=== PATIENT | female | born 1945 | race Caucasian/White ===

== ENCOUNTER 2017-09-28 12:59 | Emergency (ER) | payer MEDICARE ==
[~2017-09-28] VITALS: Ht 162.6 cm; Wt 81.6 kg
[2017-09-28] MEDS ORDERED: SODIUM CHLORIDE 0.9% 1000ML 1,000 ML IV SCH ×2 (13:30→14:45)
[2017-09-28 13:41] LABS: BASOPHILS % 0.5 % (0.0-1.0); EOSINOPHILS # (AUTO) 0.2 (0.0-0.4); EOSINOPHILS % 3.5 % (0.0-6.0); HEMATOCRIT 27.9 % (34.2-44.1); HEMOGLOBIN 9.3 g/dL (12.0-16.0); LYMPHOCYTES # (AUTO) 2.1 (1.0-3.2); MEAN CORPUSCULAR HEMOGLOBIN 28.4 pg (28-32); MEAN CORPUSCULAR HGB CONC 33.3 g/dL (31-35); MEAN CORPUSCULAR VOLUME 85.1 fL (81-99); MONOCYTES # (AUTO) 0.6 (0.2-0.8); MONOCYTES % 9.7 % (4.4-11.3); NEUTROPHILS # (AUTO) 3.3 (2.1-6.9); NEUTROPHILS % 52.2 % (38.7-80.0); PLATELET COUNT 285 x10e3/uL (140-360); RED BLOOD COUNT 3.28 x10e6/uL (3.6-5.1); RED CELL DISTRIBUTION WIDTH 15.1 % (11.7-14.4)
[2017-09-28 13:52] LABS: INR 0.89; PARTIAL THROMBOPLASTIN TIME 23.7 seconds (23.8-35.5); PROTHROMBIN TIME 12.5 seconds (11.9-14.5)
--- NOTE | 2017-09-28 13:53 | Diagnostic Imaging Report ---
PROCEDURE: A single AP view of the chest. COMPARISON: None. INDICATIONS: ALTERED MENTAL STATUS FINDINGS: Lines/tubes: None. Lungs: Limited by body habitus. The lungs are well inflated and clear. There is no evidence of pneumonia or pulmonary edema. Pleura: There is no pleural effusion or pneumothorax. Heart and mediastinum: The heart and the mediastinum are unremarkable. Bones: No acute bony abnormality. IMPRESSION: 1. No acute cardiopulmonary disease. Dictated by: Bull Mims M.D. on 09/28/2017 at 14:01 Electronically approved by: Bull Mims M.D. on 09/28/2017 at 14:01
[2017-09-28 14:04] LABS: ALBUMIN 3.9 g/dL (3.5-5.0); ALBUMIN/GLOBULIN RATIO 1.1 (0.8-2.0); ANION GAP 11.4 mmol/L (8-16); CALCIUM 9.1 mg/dL (8.4-10.2); CREATININE, SERUM 2.44 mg/dL (0.57-1.11); POTASSIUM 4.4 mmol/L (3.5-5.1)
[2017-09-28 14:12] LABS: CREATINE KINASE MB 5.6 ng/mL (0.00-5.00); TROPONIN I 0.01 ng/mL (0-0.300)
[2017-09-28 14:41] LABS: BILIRUBIN,URINE NEGATIVE (NEGATIVE); CLARITY,URINE SL CLOUDY (CLEAR); COLOR,URINE YELLOW (YELLOW); KETONES,URINE NEGATIVE (NEGATIVE); LEUKOCYTE ESTERASE ,URINE 2+ (NEGATIVE); NITRITE,URINE NEGATIVE (NEGATIVE); PROTEIN,URINE DIPSTICK NEGATIVE (NEGATIVE); URINE UROBILINOGEN 0.2 mg/dL (0.2 - 1)
--- NOTE | 2017-09-28 14:44 | Diagnostic Imaging Report ---
History:Forgetfulness Comparison studies:None Technique: Axial images were obtained from the skull base to the vertex. Coronal and sagittal images reconstructed from the axial data. Intravenous contrast: None Findings: Scalp/skull: No abnormalities. Extra-axial spaces: No masses. No fluid collections. Brain sulci: Mildly prominent. Ventricles: Mild compensatory dilatation. No hydrocephalus. Parenchyma: Scattered small hypodensities in the supratentorial white matter are small vessel ischemic changes. No masses, hemorrhage, acute or chronic cortical vascular insults. Sellar/suprasellar region: No abnormalities. Craniocervical junction: Patent foramen magnum. No Chiari one malformation. Incidental findings: Atherosclerotic calcifications in the carotid siphons . Impression: No acute abnormalities. Chronic findings: 1. Mild generalized volume loss. 2. Mild supratentorial white matter small vessel ischemic changes. Signed by: DR Joe Meza M.D. on 09/28/2017 2:41 PM
[2017-09-28] MEDS ORDERED: SODIUM CHLORIDE 0.9% 1000ML 1,000 ML IV ONE (15:00)
[2017-09-28 15:07] LABS: BACTERIA,URINE FEW /HPF; EPITHELIAL CELLS,URINE FEW /LPF; TRANSITIONAL EPI CELLS,URINE FEW; WBC,URINE (MAN) 0-5 /HPF (0-5)
[2017-09-28 16:21] VITALS: BP 145/61
== END 2017-09-28 16:45 | disposition home or self-care (01) ==
LOC: ER 12:59
DX: R41.0 Disorientation, unspecified (principal); E86.0 Dehydration; N39.0 Urinary tract infection, site not specified
CPT/HCPCS: 36415; 70450; 71010; 80053; 81001; 82550; 82553; 84484; 85025; 85610; 85730; 87086; 93005; 99284; J7030

== ENCOUNTER 2018-01-26 19:45 | Observation (INO) | payer MEDICARE ==
[~2018-01-26] VITALS: Ht 162.6 cm; Wt 89.9 kg
--- OUTSIDE RECORDS SUMMARY | 2018-01-26 19:47 | XMS REPORT ---
Author Author [facility] Address Unknown Phone Unavailable Care Team Providers Care Paratransit Operator Name Role Phone DIETER SAEED Unavailable Unavailable Problems This patient has no known problems. Allergies, Adverse Reactions, Alerts This patient has no known allergies or adverse reactions. Medications This patient has no known medications. Results Test Description Test Time Test Comments Text Results Atomic Results Result Comments CHEST SINGLE (PORTABLE) [place] [address] Patient Name: WAYNE OLSON MR #: [id number] : 1945 Age/Sex: 71/F Req #: [id number] Adm Physician: Ordered by: DIETER SAEED MD Report #: [id number] Location: ER Room/Bed: Procedure: [id number] DX/CHEST SINGLE (PORTABLE) Exam Date: 09/28/17 Exam Time: 1320 REPORT STATUS: Signed PROCEDURE: A single AP view of the chest. COMPARISON: None. INDICATIONS: ALTERED MENTAL STATUS FINDINGS: Lines/tubes: None. Lungs: Limited by body habitus. The lungs are well inflated and clear. There is no evidence of pneumonia or pulmonary edema. Pleura: There is no pleural effusion or pneumothorax. Heart and mediastinum: The heart and the mediastinum are unremarkable. Bones: No acute bony abnormality. IMPRESSION: 1. No acute cardiopulmonary disease. Dictated by: Bull Velazquez M.D. on 09/28/2017 at 14:01 Electronically approved by: Bull Velazquez M.D. on 09/28/2017 at 14:01 Dictated By: BULL VELAZQUEZ MD 00 Transcribed By: SUAD on 09/28/171400 COPY TO: DIETER SAEED MD CT BRAIN WO [place] [address] Patient Name: WAYNE OLSON MR #: [id number] : 1945 Age/Sex: 71/F Req #: [id number] Adm Physician: Ordered by: DIETER SAEED MD Report #: [id number] Location: Room/Bed: Procedure: [id number] CT/CT BRAIN WO Exam Date: 09/28/17 Exam Time: 1320 REPORT STATUS: Signed History:Forgetfulness Comparison studies:None Technique: Axial images were obtained from the skull base to the vertex. Coronal and sagittal images reconstructed from the axial data. Intravenous contrast: None Findings: Scalp/skull: No abnormalities. Extra- axial spaces: No masses. No fluid collections. Brain sulci: Mildly prominent. Ventricles: Mild compensatory dilatation. No hydrocephalus. Parenchyma: Scattered small hypodensities in the supratentorial white matter are small vessel ischemic changes. No masses, hemorrhage, acute or chronic cortical vascular insults. Sellar/suprasellar region: No abnormalities. Craniocervical junction: Patent foramen magnum. No Chiari one malformation. Incidental findings: Atherosclerotic calcifications in the carotid siphons . Impression: No acute abnormalities. Chronic findings: 1. Mild generalized volume loss. 2. Mild supratentorial white matter small vessel ischemic changes. Signed by: DR Joe Meza M.D. on 09/28/2017 2:41 PM Dictated By: JOE CARRERA MD 1441 Transcribed By: OLIVIA on 1441 COPY TO: DIETER SAEED MD
[2018-01-26 20:27] LABS: BASOPHILS % 0.2 % (0.0-1.0); EOSINOPHILS # (AUTO) 0.2 (0.0-0.4); EOSINOPHILS % 2.3 % (0.0-6.0); HEMATOCRIT 28.4 % (34.2-44.1); HEMOGLOBIN 9.6 g/dL (12.0-16.0); LYMPHOCYTES # (AUTO) 2.2 (1.0-3.2); LYMPHOCYTES % 25.7 % (18.0-39.1); MEAN CORPUSCULAR HEMOGLOBIN 28.3 pg (28-32); MEAN CORPUSCULAR HGB CONC 33.8 g/dL (31-35); MEAN CORPUSCULAR VOLUME 83.8 fL (81-99); MONOCYTES # (AUTO) 0.7 (0.2-0.8); MONOCYTES % 8.1 % (4.4-11.3); NEUTROPHILS # (AUTO) 5.4 (2.1-6.9); NEUTROPHILS % 62.9 % (38.7-80.0); PLATELET COUNT 242 x10e3/uL (140-360); RED BLOOD COUNT 3.39 x10e6/uL (3.6-5.1); RED CELL DISTRIBUTION WIDTH 13.2 % (11.7-14.4)
--- NOTE | 2018-01-26 20:35 | Diagnostic Imaging Report ---
Portable chest x-ray INDICATION: Confusion COMPARISON: Chest x-ray 09/28/2017 FINDINGS: Frontal view of the chest obtained at 2016 hours. The cardiac silhouette is normal. The pulmonary vascular markings are normal. The lungs demonstrate no mass or infiltrate. There is stable eventration of the right diaphragm. The costophrenic angles are sharp. There is no pneumothorax. The osseous structures are intact. Severe degenerative changes of the left shoulder are stable. IMPRESSION: Stable chest. No active disease. Signed by: Dr. Nick Babcock MD on 01/26/2018 8:32 PM
[2018-01-26 20:47] LABS: ALBUMIN 3.4 g/dL (3.5-5.0); ALBUMIN/GLOBULIN RATIO 1.1 (0.8-2.0); ANION GAP 12.5 mmol/L (8-16); CREATININE, SERUM 1.37 mg/dL (0.57-1.11); POTASSIUM 4.5 mmol/L (3.5-5.1)
[2018-01-26 20:54] LABS: CREATINE KINASE MB 9.1 ng/mL (0-5.0)
--- NOTE | 2018-01-26 21:04 | Diagnostic Imaging Report ---
EXAMINATION: Head CT HISTORY: Evaluate for acute stroke, confusion COMPARISON: Head CT on 09/28/2017. TECHNIQUE: Multidetector axial images were obtained without contrast from the foramen magnum to the vertex . The images were reconstructed using brain and bone algorithms. Thin section brain images were reformatted into coronal and sagittal planes. Intravenous contrast: None. Motion/streaking artifact limits the evaluation of the skull base and posterior cranial fossa. FINDINGS: Parenchyma: 1. Stable mild chronic microvascular ischemic changes. 2. No mass or hemorrhage. No CT evidence of acute territorial vascular insult. Extra-axial spaces:No abnormal density. No extra-axial fluid collections Brain volume: Normal for age. Ventricles: No hydrocephalus or displacement. Arteries: No density suggestive of thrombus. Dural sinuses: No abnormal density. Extra-axial spaces: No abnormal density. Foramen magnum: No mass, Chiari malformation, or basilar invagination. Sella: Mildly enlarged, partially empty, likely CSF filled. Paranasal/mastoid sinuses: Imaged portions unremarkable. Skull/Scalp: No lytic or blastic lesions. No fractures. Nonspecific lucency within multiple segment of the right temporal bone without cortical disruption or radiographic reaction, which may represent a hemangioma.. IMPRESSION: 1. No intracranial hemorrhage or CT evidence of acute cortical infarct. 2. Stable mild chronic microvascular ischemic changes. Signed by: Dr. Pamela Gomez M.D. on 01/26/2018 9:00 PM
[2018-01-26 22:50] LABS: CLARITY,URINE CLEAR (CLEAR); COLOR,URINE YELLOW (YELLOW); KETONES,URINE NEGATIVE (NEGATIVE); LEUKOCYTE ESTERASE ,URINE TRACE (NEGATIVE); NITRITE,URINE NEGATIVE (NEGATIVE); PROTEIN,URINE DIPSTICK NEGATIVE (NEGATIVE)
[2018-01-26 22:51] LABS: BILIRUBIN,URINE NEGATIVE (NEGATIVE); URINE UROBILINOGEN 0.2 mg/dL (0.2 - 1)
[2018-01-26 22:58] LABS: BACTERIA,URINE RARE /HPF; EPITHELIAL CELLS,URINE FEW /LPF; MUCUS,URINE MANY (RARE); WBC,URINE (MAN) 21-50 /HPF (0-5)
[2018-01-26] MEDS ORDERED: ONDANSETRON HCL 4 MG ORAL DISINTEGRATING TAB PO PRN (23:00)
[2018-01-26] MEDS ORDERED: CEFTRIAXONE SOD 1 GM VIAL IV SCH (23:00)
[2018-01-26] MEDS ORDERED: CEFTRIAXONE SOD 1 GM VIAL ONE (23:16)
[2018-01-26] MEDS: SODIUM CHLORIDE 0.9% 1000ML 1,000 ML IV SCH (23:24)
[2018-01-27] VITALS: BP 149/66
[2018-01-27] MEDS ORDERED: LEVOTHYROXINE150 MCG PO (00:01)
[2018-01-27] MEDS ORDERED: TRAZODONE HCL100 MG PO (00:01)
[2018-01-27] MEDS ORDERED: ALPRAZOLAM0.5 MG PO (00:01)
[2018-01-27] MEDS ORDERED: RANITIDINE HCL300 M1 PO (00:01)
[2018-01-27] MEDS ORDERED: CITALOPRAM HBR40 MG PO (00:01)
[2018-01-27] MEDS ORDERED: HYDROCODON-ACE1 EAC9 PO (00:01)
[2018-01-27 00:40] VITALS: BP 163/69
[2018-01-27 04:00] VITALS: BP 162/72
[2018-01-27 04:35] LABS: ALBUMIN/GLOBULIN RATIO 1.1 (0.8-2.0); ANION GAP 11.5 mmol/L (8-16); CALCIUM 8.7 mg/dL (8.4-10.2); CREATININE, SERUM 1.4 mg/dL (0.57-1.11); POTASSIUM 4.5 mmol/L (3.5-5.1)
[2018-01-27 06:55] LABS: BASOPHILS % 0.2 % (0.0-1.0); EOSINOPHILS # (AUTO) 0.2 (0.0-0.4); EOSINOPHILS % 2.3 % (0.0-6.0); HEMATOCRIT 26.2 % (34.2-44.1); HEMOGLOBIN 8.9 g/dL (12.0-16.0); LYMPHOCYTES # (AUTO) 2.4 (1.0-3.2); LYMPHOCYTES % 28.4 % (18.0-39.1); MEAN CORPUSCULAR HEMOGLOBIN 28.3 pg (28-32); MEAN CORPUSCULAR VOLUME 83.4 fL (81-99); MONOCYTES # (AUTO) 0.8 (0.2-0.8); MONOCYTES % 9.5 % (4.4-11.3); NEUTROPHILS % 58.9 % (38.7-80.0); PLATELET COUNT 210 x10e3/uL (140-360); RED BLOOD COUNT 3.14 x10e6/uL (3.6-5.1); RED CELL DISTRIBUTION WIDTH 13.2 % (11.7-14.4)
[2018-01-27] MEDS ORDERED: HYDROCODONE/APAP 10MG-325MG TAB PO PRN ×2 (07:45)
[2018-01-27 07:58] VITALS: BP 155/61
[2018-01-27] MEDS ORDERED: LOPERAMIDE HCL 2 MG CAP PO PRN (08:15)
[2018-01-27] MEDS ORDERED: LOPERAMIDE HCL 2 MG CAP PO ONE (08:15)
[2018-01-27] MEDS: SODIUM CHLORIDE 0.9% 1000ML 1,000 ML IV SCH (08:30)
[2018-01-27] MEDS ORDERED: CITALOPRAM HYDROBROMIDE 20 MG TAB PO SCH (09:00)
[2018-01-27] MEDS ORDERED: NON-FORMULARY MEDICATION (Citalopram Hydrobromide (Citalopram Hbr) 40 MG) PO SCH (09:00)
[2018-01-27] MEDS ORDERED: ALPRAZOLAM 0.5 MG TAB PO SCH (09:00)
[2018-01-27 11:39] VITALS: BP 173/64
[2018-01-27 11:46] LABS: CREATINE KINASE MB 7.9 ng/mL (0-5.0)
[2018-01-27] MEDS ORDERED: MACRODANTIN100 MG PO (14:50)
[2018-01-27] MEDS ORDERED: NON-FORMULARY MEDICATION (Trazodone Hcl 200 MG) PO SCH (21:00)
[2018-01-27] MEDS ORDERED: TRAZODONE HCL 50 MG TAB PO SCH (21:00)
[2018-01-27] MEDS ORDERED: FAMOTIDINE 20 MG TAB PO SCH (21:00)
[2018-01-27] MEDS ORDERED: NON-FORMULARY MEDICATION (Ranitidine Hcl 300 MG) PO SCH (21:00)
[2018-01-28] MEDS ORDERED: NON-FORMULARY MEDICATION (Levothyroxine Sodium 150 MCG) PO SCH (06:00)
[2018-01-28] MEDS ORDERED: LEVOTHYROXINE SODIUM 75 MCG TAB PO SCH (06:00)
== END 2018-01-27 15:10 | disposition home or self-care (01) ==
LOC: ER 19:45 → IMCU 23:39
PROVIDERS: ADMIT Internal Medicine; ATTEND Internal Medicine
DX: N30.00 Acute cystitis without hematuria (principal); E03.9 Hypothyroidism, unspecified; F41.9 Anxiety disorder, unspecified; E86.0 Dehydration; E87.1 Hypo-osmolality and hyponatremia; I12.9 Hypertensive chronic kidney disease with stage 1 through stage 4 chronic kidney disease, or unspecified chronic kidney disease; N18.3 Chronic kidney disease, stage 3 (moderate); D64.9 Anemia, unspecified; R41.0 Disorientation, unspecified
CPT/HCPCS: 36415 ×2; 51700; 70450; 71045; 80053 ×2; 81001; 82550 ×2; 82553 ×2; 84484 ×2; 85025 ×2; 87086; 93880; 99284; G0378 ×2; J0696; J7030 ×2

== ENCOUNTER 2018-10-24 22:07 | Inpatient (IN) | payer MEDICARE ==
[~2018-10-24] VITALS: Ht 160 cm; Wt 76.8 kg
[~2018-10-24 22:07] MED LIST: ALPRAZOLAM0.5 MG PO; CITALOPRAM HBR40 MG PO; HYDROCODON-ACE1 EAC9 PO; LEVOTHYROXINE150 MCG PO; MACRODANTIN100 MG PO; RANITIDINE HCL300 M1 PO; TRAZODONE HCL100 MG PO
--- OUTSIDE RECORDS SUMMARY | 2018-10-24 22:10 | XMS REPORT | Continuity of Care Document ---
Author Author [facility] Interface Address Unknown Phone Unavailable Problems Problem Status Onset Date Classification Date Reported Comments Source Final: Stiffness of right ankle, not elsewhere classified 05/16/2016 [facility] [place] Final: Difficulty in walking, not elsewhere classified 05/16/2016 [facility] [place] Final: Pain in right ankle and joints of right foot 05/16/2016 [facility] [place] Confusion Active Problem 01/27/2018 [facility] UTI Active Problem 01/27/2018 [facility] LT KNEE Active [facility] [place] LEFT KNEE Active [facility] [place] SPRAIN OF UNSPECIFIED LIGAMENT OF RIGHT Active [facility] [place] PAIN IN LEFT KNEE Active [facility] [place] MUSCLE WEAKNESS (GENERALIZED) Active [facility] [place] STIFFNESS OF RIGHT ANKLE, NOT ELSEWHERE Active [facility] [place] DIFFICULTY IN WALKING, NOT ELSEWHERE CLA Active [facility] [place] PAIN IN RIGHT ANKLE AND JOINTS OF RIGHT Active [facility] [place] Medications Medication Details Route Status Patient Instructions Ordering Provider Order Date Source Alprazolam 0.5 Mg Tablet Three Times A Day Active [facility] Citalopram Hydrobromide (Citalopram Hbr) 40 Mg Tablet Daily Active [facility] Hydrocodone Bit/Acetaminophen (Hydrocodon-Acetaminophn 10-325) 1 Each Tablet Every 8 Hours as needed for Pain Active [facility] Levothyroxine Sodium 150 Mcg Tablet Daily Active [facility] Nitrofurantoin Macrocrystal (Macrodantin) 100 Mg Capsule Twice A Day Active [facility] Ranitidine Hcl 300 Mg Capsule Bedtime Active [facility] Trazodone Hcl 100 Mg Tablet Bedtime Active [facility] Allergies, Adverse Reactions, Alerts Substance Category Reaction Severity Reaction type Status Date Reported Comments Source Immunizations Immunization Date Given Site Status Last Updated Comments Source Results Order Name Results Value Reference Range Date Interpretation Comments Source Brain wo contrast MRI Brain wo contrast MRI Patient Name: WAYNE OLSON : 1945. Age: 72 years. Gender: Female. MR: [id number]. Location: [facility]. Provider: Chelly Colvin MD. EXAM: Brain wo contrast MRI. PROVIDED CLINICAL HISTORY: Memory loss. Unsteady gait and falling for one month. - G30.1 Alzheimer's disease with late onset TECHNIQUE: Multi-sequence, multi-planar MR of the brain without gadolinium contrast. COMPARISON: No relevant prior exams available at the time of interpretation. FINDINGS: BRAIN: -- Moderate confluent abnormally increased supratentorial periventricular white matter T2 and FLAIR signal. Additional mostly subcentimeter hyperintense foci scattered throughout the subcortical and periventricular deep white matter bilaterally. Pattern is non-specific but most commonly due to chronic small vessel ischemic disease. -- Pituitary gland is flattened along the floor of the CSF-filled "empty" sella, a typically clinically insignificant non-specific finding that can be seen with idiopathic intracranial hypertension in the appropriate clinical setting. No significant optic nerve tortuosity, flattening of the posterior globe contours, intraocular protrusion of the optic nerve heads, or other secondary signs of intracranial hypertension. -- No areas of abnormally-restricted diffusion in a pattern suggestive of acute or early subacute ischemia. No intracranial hemorrhage. No other fluid collection. No intracranial mass. No cerebellar tonsillar ectopia. Mildly prominent but age-consistent global parenchymal volume loss. VENTRICLES / CISTERNS / SHIFT: No hydrocephalus. No significant effacement of the basal cisterns or foramen magnum. No significant midline shift. VESSELS: No loss of flow voids within the major intracranial vessels or dural sinuses. Vessel and dural sinus patency are not adequately assessed without dedicated angiography or venography. BONES / SCALP: No acute fracture. No significant systemic marrow signal abnormality. No aggressive bony lesions. No significant extracranial soft tissue abnormality. IMAGED SINUSES / MASTOIDS / MISC: Aerated sphenoid sinus secretions, commonly acute or subacute sinusitis. No significant sinus mucosal thickening. No significant mastoid signal abnormality. IMAGED UPPER CERVICAL SPINE: Moderate degenerative changes along the imaged upper cervical spine, best evaluated with dedicated MR. IMPRESSION: 1. No acute intracranial abnormality. 2. Chronic microangiopathic ischemic gliosis. 3. Acute or subacute sinusitis. 4. Cervical spondylosis. 5. Please review additional findings / discussion above. SL: [id number] 07/21/2018 - - Read by: Maulik Quintana MD Dictated Date/time: 07/21/18 13:14 Electronically Signed by: Maulik Quintana MD 07/21/18 13:26 FINAL REPORT [facility] Serum or plasma creatine kinase MB measurement (mass/volume) Serum or plasma creatine kinase MB measurement (mass/volume) 7.90 0 - 5.0 01/27/2018 [facility] Serum or plasma creatine kinase measurement (enzymatic activity/volume) Serum or plasma creatine kinase measurement (enzymatic activity/volume) 237 29 - 168 01/27/2018 [facility] Troponin I measurement by highly sensitive enzyme immunoassay Troponin I measurement by highly sensitive enzyme immunoassay 0.003 0 - 0.300 01/27/2018 [facility] Automated blood basophil count (count/volume) Automated blood basophil count (count/volume) 0.0 0.0 - 0.1 01/27/2018 [facility] Automated blood basophil count as percentage of total leukocytes Automated blood basophil count as percentage of total leukocytes 0.2 0.0 - 1.0 01/27/2018 [facility] Automated blood eosinophil count Automated blood eosinophil count 0.2 0.0 - 0.4 01/27/2018 [facility] Automated blood eosinophil count as percentage of total leukocytes Automated blood eosinophil count as percentage of total leukocytes 2.3 0.0 - 6.0 01/27/2018 [facility] Automated blood hematocrit (volume fraction) Automated blood hematocrit (volume fraction) 26.2 34.2 - 44.1 01/27/2018 [facility] Automated blood lymphocyte count as percentage ot total leukocytes Automated blood lymphocyte count as percentage ot total leukocytes 28.4 18.0 - 39.1 01/27/2018 [facility] Automated blood monocyte count as percentage of total leukocytes Automated blood monocyte count as percentage of total leukocytes 9.5 4.4 - 11.3 01/27/2018 [facility] Automated blood neutrophil count Automated blood neutrophil count 5.0 2.1 - 6.9 01/27/2018 [facility] Automated blood platelet count (count/volume) Automated blood platelet count (count/volume) 210 140 - 360 01/27/2018 [facility] Automated blood segmented neutrophil count as percentage of total leukocytes Automated blood segmented neutrophil count as percentage of total leukocytes 58.9 38.7 - 80.0 01/27/2018 [facility] Automated erythrocyte mean corpuscular hemoglobin (mass per erythrocyte) Automated erythrocyte mean corpuscular hemoglobin (mass per erythrocyte) 28.3 28 - 32 01/27/2018 [facility] Automated erythrocyte mean corpuscular hemoglobin concentration measurement (mass/volume) Automated erythrocyte mean corpuscular hemoglobin concentration measurement (mass/volume) 34.0 31 - 35 01/27/2018 [facility] Automated erythrocyte mean corpuscular volume Automated erythrocyte mean corpuscular volume 83.4 81 - 99 01/27/2018 [facility] Blood erythrocytes automated count (number/volume) Blood erythrocytes automated count (number/volume) 3.14 3.6 - 5.1 01/27/2018 [facility] Blood hemoglobin measurement (moles/volume) Blood hemoglobin measurement (moles/volume) 8.9 12.0 - 16.0 01/27/2018 [facility] Blood leukocytes automated count (number/volume) Blood leukocytes automated count (number/volume) 8.43 4.8 - 10.8 01/27/2018 [facility] Blood lymphocytes count (number/volume) Blood lymphocytes count (number/volume) 2.4 1.0 - 3.2 01/27/2018 [facility] Blood monocytes automated count (number/volume) Blood monocytes automated count (number/volume) 0.8 0.2 - 0.8 01/27/2018 [facility] Red Cell Distribution Width 13.2 11.7 - 14.4 01/27/2018 [facility] IM GRANULOCYTES % 0.7 0.0 - 1.0 01/27/2018 [facility] Absolute Immature Granulocyte (auto 0.06 0 - 0.1 01/27/2018 [facility] Estimated glomerular filtration rate (GFR) determination Estimated glomerular filtration rate (GFR) determination 37 60 01/27/2018 [facility] Glucose measurement Glucose measurement 104 74 - 118 01/27/2018 [facility] Plasma globulin measurement (mass/volume) Plasma globulin measurement (mass/volume) 2.7 2.3 - 3.5 01/27/2018 [facility] Serum or plasma alanine aminotransferase measurement (enzymatic activity/volume) Serum or plasma alanine aminotransferase measurement (enzymatic activity/volume) 13 0 - 55 01/27/2018 [facility] Serum or plasma albumin measurement (mass/volume) Serum or plasma albumin measurement (mass/volume) 3.0 3.5 - 5.0 01/27/2018 [facility] Serum or plasma albumin/globulin mass ratio Serum or plasma albumin/globulin mass ratio 1.1 0.8 - 2.0 01/27/2018 [facility] Serum or plasma alkaline phosphatase measurement (enzymatic activity/volume) Serum or plasma alkaline phosphatase measurement (enzymatic activity/volume) 44 40 - 150 01/27/2018 [facility] Serum or plasma anion gap Serum or plasma anion gap 11.5 8 - 16 01/27/2018 [facility] Serum or plasma calcium measurement (mass/volume) Serum or plasma calcium measurement (mass/volume) 8.7 8.4 - 10.2 01/27/2018 [facility] Serum or plasma carbon dioxide, total measurement (moles/volume) Serum or plasma carbon dioxide, total measurement (moles/volume) 23 22 - 29 01/27/2018 [facility] Serum or plasma chloride measurement (moles/volume) Serum or plasma chloride measurement (moles/volume) 102 98 - 107 01/27/2018 [facility] Serum or plasma creatinine measurement (mass/volume) Serum or plasma creatinine measurement (mass/volume) 1.40 0.57 - 1.11 01/27/2018 [facility] Serum or plasma potassium measurement (moles/volume) Serum or plasma potassium measurement (moles/volume) 4.5 3.5 - 5.1 01/27/2018 [facility] Serum or plasma protein measurement (mass/volume) Serum or plasma protein measurement (mass/volume) 5.7 6.5 - 8.1 01/27/2018 [facility] Serum or plasma sodium measurement (moles/volume) Serum or plasma sodium measurement (moles/volume) 132 136 - 145 01/27/2018 [facility] Serum or plasma total bilirubin measurement (mass/volume) Serum or plasma total bilirubin measurement (mass/volume) 0.5 0.2 - 1.2 01/27/2018 [facility] Serum or plasma urea nitrogen measurement (mass/volume) Serum or plasma urea nitrogen measurement (mass/volume) 26 7 - 26 01/27/2018 [facility] Serum or plasma urea nitrogen/creatinine mass ratio Serum or plasma urea nitrogen/creatinine mass ratio 19 6 - 25 01/27/2018 [facility] Aspartate Amino Transf (AST/SGOT) 18 5 - 34 01/27/2018 [facility] Automated urine sediment leukocyte count by microscopy (number/high power field) Automated urine sediment leukocyte count by microscopy (number/high power field) null 0 - 5 01/26/2018 [facility] Bacteria detection in urine sediment by light microscopy Bacteria detection in urine sediment by light microscopy RARE NONE 01/26/2018 [facility] Epithelial cells detection in urine sediment by light microscopy Epithelial cells detection in urine sediment by light microscopy FEW NONE 01/26/2018 [facility] Erythrocytes detection in urine sediment by light microscopy Erythrocytes detection in urine sediment by light microscopy null 0 - 5 01/26/2018 [facility] Mucus detection in urine sediment by light microscopy Mucus detection in urine sediment by light microscopy MANY RARE 01/26/2018 [facility] Specific gravity of Urine by Test strip Specific gravity of Urine by Test strip 1.020 1.010 - 1.025 01/26/2018 [facility] Urine clarity Urine clarity CLEAR CLEAR 01/26/2018 [facility] Urine color determination Urine color determination YELLOW YELLOW 01/26/2018 [facility] Urine erythrocytes detection Urine erythrocytes detection NEGATIVE NEGATIVE 01/26/2018 [facility] Urine glucose detection Urine glucose detection NEGATIVE NEGATIVE 01/26/2018 [facility] Urine ketones detection by automated test strip Urine ketones detection by automated test strip NEGATIVE NEGATIVE 01/26/2018 [facility] Urine leukocyte esterase detection by dipstick Urine leukocyte esterase detection by dipstick TRACE NEGATIVE 01/26/2018 [facility] Urine nitrite detection Urine nitrite detection NEGATIVE NEGATIVE 01/26/2018 [facility] Urine pH measurement by automated test strip Urine pH measurement by automated test strip 6 5 - 7 01/26/2018 [facility] Urine protein measurement by test strip (mass/volume) Urine protein measurement by test strip (mass/volume) NEGATIVE NEGATIVE 01/26/2018 [facility] Urine total bilirubin measurement (mass/volume) Urine total bilirubin measurement (mass/volume) NEGATIVE NEGATIVE 01/26/2018 [facility] Urine urobilinogen measurement by test strip (mass/volume) Urine urobilinogen measurement by test strip (mass/volume) 0.2 0.2 - 1 01/26/2018 [facility] Activated partial thromboplastin time (aPTT) in platelet poor plasma bycoagulation assay Activated partial thromboplastin time (aPTT) in platelet poor plasma bycoagulation assay 23.7 23.8 - 35.5 09/28/2017 [facility] INR in Platelet poor plasma by Coagulation assay INR in Platelet poor plasma by Coagulation assay 0.89 09/28/2017 [facility] Prothrombin time (PT) in platelet poor plasma by coagulation assay Prothrombin time (PT) in platelet poor plasma by coagulation assay 12.5 11.9 - 14.5 09/28/2017 [facility] Transitional cells detection in urine sediment by light microscopy Transitional cells detection in urine sediment by light microscopy FEW NONE 09/28/2017 [facility] Bacterial urine culture Bacterial urine culture Urine Culture [facility] Vital Signs Vital Sign Value Date Comments Source Encounters Location Location Details Encounter Type Encounter Number Reason For Visit Attending Provider ADM Date DC Date Status Source [facility] [place] [facility] [id number] Casa Blackwoodedie 03/14/2014 04/13/2014 [facility] [place] [facility] [id number] Casa [place] 04/17/2014 05/17/2014 [facility] [place] [facility] [place] [facility] [id number] Casa [place] 04/14/2016 05/14/2016 [facility] [place] Departed Emergency Room [id number] DIETER SAEED MD 09/28/2017 09/28/2017 [facility] Discharged Inpatient (obs) [id number] ASHLYN ARMSTRONG MD 01/26/2018 01/27/2018 [facility] Procedures Procedure Code Date Perfomer Comments Source Computed tomography of brain without radiopaque contrast [id number] 01/26/2018 AVNI [facility] Computed tomography of brain without radiopaque contrast [id number] 09/28/2017 DARLIN [facility]
--- OUTSIDE RECORDS SUMMARY | 2018-10-24 22:10 | XMS REPORT | Summary of Care ---
Author Organization Unknown Address Unknown Phone Unavailable Encounter [facility] Encntr_law([facility]) [id number] Date(s): 03/14/14 - 04/12/14 [facility] [place] Discharge Disposition: Home Physician Attending: Casa Hannah MD Reason for Visit LT KNEE Problem List No data available for this section Allergies, Adverse Reactions, Alerts No data available for this section Medications No data available for this section Medications Administered During Your Visit No data available for this section Immunizations No data available for this section
--- OUTSIDE RECORDS SUMMARY | 2018-10-24 22:10 | XMS REPORT | Summary of Care ---
Author Author [facility] Address Unknown Phone Unavailable Encounter [facility] Encntr_charliearturo([facility]) [id number] Date(s): 04/14/16 - 05/13/16 [facility] Final: Stiffness of right ankle, not elsewhere classified Final: Difficulty in walking, not elsewhere classified Final: Pain in right ankle and joints of right foot Discharge Disposition: Home or Self Care Attending Physician: Casa Hannah MD Vital Signs No data available for this section Problem List No data available for this section Allergies, Adverse Reactions, Alerts No data available for this section Medications No data available for this section Results No data available for this section Immunizations No data available for this section Procedures No data available for this section Social History No data available for this section Assessment and Plan No data available for this section
--- OUTSIDE RECORDS SUMMARY | 2018-10-24 22:10 | XMS REPORT | Summary of Care ---
Author Organization Unknown Address Unknown Phone Unavailable Encounter Surjitr_law([facility]) [id number] Date(s): 04/17/14 - 05/16/14 [facility] [place] Discharge Disposition: Home Physician Attending: Casa Hannah MD Reason for Visit LEFT KNEE Problem List No data available for this section Allergies, Adverse Reactions, Alerts No data available for this section Medications No data available for this section Medications Administered During Your Visit No data available for this section Immunizations No data available for this section
--- NOTE | 2018-10-24 22:40 | NUR ---
alexander placed 16fr, 420ml return. aware, inst to leave alexander in place for urinary retention. awake alert skin w/d resp nonlab. nad noted.
[2018-10-24 23:22] LABS: BASOPHILS % 0.4 % (0.0-1.0); EOSINOPHILS # (AUTO) 0.4 (0.0-0.4); EOSINOPHILS % 3.8 % (0.0-6.0); HEMATOCRIT 25.7 % (34.2-44.1); HEMOGLOBIN 8.5 g/dL (12.0-16.0); LYMPHOCYTES # (AUTO) 3.2 (1.0-3.2); LYMPHOCYTES % 34.5 % (18.0-39.1); MEAN CORPUSCULAR HGB CONC 33.1 g/dL (31-35); MEAN CORPUSCULAR VOLUME 84.5 fL (81-99); MONOCYTES % 11.1 % (4.4-11.3); NEUTROPHILS # (AUTO) 4.6 (2.1-6.9); NEUTROPHILS % 49.7 % (38.7-80.0); PLATELET COUNT 202 x10e3/uL (140-360); RED BLOOD COUNT 3.04 x10e6/uL (3.6-5.1); RED CELL DISTRIBUTION WIDTH 13.2 % (11.7-14.4)
[2018-10-24 23:32] LABS: INR 0.92; PROTHROMBIN TIME 13.2 seconds (11.9-14.5)
[2018-10-24 23:42] LABS: ALBUMIN 3.1 g/dL (3.5-5.0); ALBUMIN/GLOBULIN RATIO 1.1 (0.8-2.0); ANION GAP 13.3 mmol/L (8-16); CALCIUM 8.7 mg/dL (8.4-10.2); CREATININE, SERUM 1.56 mg/dL (0.57-1.11); POTASSIUM 5.3 mmol/L (3.5-5.1)
[2018-10-24 23:50] LABS: CREATINE KINASE MB 3.1 ng/mL (0-5.0)
--- NOTE | 2018-10-24 23:56 | Diagnostic Imaging Report ---
EXAMINATION: CHEST SINGLE (PORTABLE) INDICATION: ^CHEST PAIN ^[id number] ^[id number] ^Y COMPARISON: 01/26/2018 FINDINGS: AP view TUBES and LINES: None. LUNGS: Lungs are well inflated. Central peribronchial cuffing. PLEURA: No pleural effusion or pneumothorax. HEART AND MEDIASTINUM: The cardiomediastinal silhouette is unremarkable. BONES AND SOFT TISSUES: No acute osseous lesion. Soft tissues are unremarkable. UPPER ABDOMEN: No free air under the diaphragm. IMPRESSION: Central peribronchial cuffing. Underlying infiltrate in the inferior right perihilar region cannot be excluded. Signed by: Dr. Bull Mims MD on 10/24/2018 11:53 PM
[2018-10-24 23:58] LABS: BACTERIA,URINE FEW /HPF; BILIRUBIN,URINE NEGATIVE (NEGATIVE); CLARITY,URINE CLEAR (CLEAR); COLOR,URINE YELLOW (YELLOW); EPITHELIAL CELLS,URINE RARE /LPF; KETONES,URINE NEGATIVE (NEGATIVE); LEUKOCYTE ESTERASE ,URINE NEGATIVE (NEGATIVE); NITRITE,URINE NEGATIVE (NEGATIVE); PROTEIN,URINE DIPSTICK NEGATIVE (NEGATIVE); RBC,URINE 0-5 /HPF (0-5); URINE UROBILINOGEN 0.2 mg/dL (0.2 - 1); WBC,URINE (MAN) 0-5 /HPF (0-5)
[2018-10-25] VITALS (10 sets, daily range): BP systolic 160–191; BP diastolic 70–77
[2018-10-25] MEDS ORDERED: SODIUM CHLORIDE 0.9% 1000ML 1,000 ML IV STA (00:36)
[2018-10-25] MEDS ORDERED: PANTOPRAZOLE 40 MG 10ML VIAL IV STA (00:36)
[2018-10-25] MEDS ORDERED: ONDANSETRON HCL INJ 2MG/ML 2ML 2 MG/ML VIAL IV PRN (01:00)
[2018-10-25] MEDS ORDERED: MEMANTINE PO (01:37)
[2018-10-25] MEDS ORDERED: BENICAR HCT 401 EACH PO (01:37)
[2018-10-25] MEDS ORDERED: LEVOTHYROXINE125 MCG PO (01:37)
[2018-10-25] MEDS ORDERED: ADDERALL 30 MG30 MG PO (01:37)
--- NOTE | 2018-10-25 02:22 | NUR ---
PATIENT RECEIVED FROM EMERGENCY DEPARTMENT PER STRETCHER AT 0145; SHE'S ALERT AND ORIENTED X3, NO RESPIRATORY DISTRESS OBSERVED AND SHE DENIES PAIN. 2+ PITTING EDEMA TO THE LEGS, GENERALIZED BRUISES TO THE ARMS AND LEGS WITH SCAR TO THE RIGHT KNEE. IV INTACT TO THE RIGHT FOREARM WITH IV FLUID INFUSING, BED ALARM ON AND CALL LIGHT WITHIN EASY REACH.
[2018-10-25] MEDS ORDERED: ALPRAZOLAM 0.5 MG TAB PO PRN (05:00)
[2018-10-25] MEDS ORDERED: HYDROCODONE/APAP 10MG-325MG TAB PO PRN ×2 (05:00→13:30)
[2018-10-25] MEDS: SODIUM CHLORIDE 0.9% 1000ML 1,000 ML IV SCH ×3 (06:30→16:19)
[2018-10-25 07:01] LABS: CREATINE KINASE MB 3.2 ng/mL (0-5.0)
[2018-10-25 07:27] LABS: FREE THYROXINE INDEX 2.7862 (1.4-3.8); THYROID STIMULATING HORMONE 0.134 uIU/mL (0.350-4.940)
[2018-10-25] MEDS: ASPIRIN 81 MG ENTERIC COATED PO SCH (08:10)
[2018-10-25] MEDS: LEVOTHYROXINE SODIUM 125 MCG TAB PO SCH (08:10)
[2018-10-25] MEDS: FAMOTIDINE 20 MG/2 ML VIAL IV SCH ×2 (08:10→22:51)
[2018-10-25] MEDS: OLMESARTAN 20 MG TAB PO SCH (08:10)
--- NOTE | 2018-10-25 10:07 | NUR ---
IMM EXPLAINED, SIGNED BY PT'S AND PLACED IN CHART COPY TO PT IN CARE TRANSITIONS FOLDER
--- NOTE | 2018-10-25 10:24 | NUR ---
Patient arrived to the unit by wheelchair at this time. Patient ambulated to the bed with standby assistance. Walker at bedside. Patient's at bedside. Patient is A&Ox3. Call heath is within reach. Bed is low and locked.
--- NOTE | 2018-10-25 11:45 | NUR ---
Removed Geiger catheter at this time. Catheter tip intact. 9.5 mL removed from balloon. Patient tolerated well. 700 mL of clear pale yellow urine emptied from Geiger.
[2018-10-25 14:55] LABS: CREATINE KINASE MB 3.4 ng/mL (0-5.0)
[2018-10-25] MEDS: CLONIDINE HCL 0.1 MG TAB PO PRN ×2 (17:11→22:53)
--- NOTE | 2018-10-25 19:30 | NUR ---
Patient received lying in bed. AAO x 2. No complaints of pain. No signs of respiratory distress. Patient assisted to the bathroom. Fall precautions maintained. Patient instructed to call for assistance when needed. Call light within reach.
--- NOTE | 2018-10-25 22:15 | NUR ---
Patient declined blood draw for analysis of "cardiac enzymes". Patient specifically stated "Get out of my room". Charge Nurse (Iliana) notified.
[2018-10-26] VITALS (9 sets, daily range): BP systolic 144–194; BP diastolic 63–89
[2018-10-26 04:57] LABS: BASOPHILS % 0.4 % (0.0-1.0); EOSINOPHILS # (AUTO) 0.4 (0.0-0.4); EOSINOPHILS % 5.2 % (0.0-6.0); HEMATOCRIT 25.2 % (34.2-44.1); HEMOGLOBIN 8.5 g/dL (12.0-16.0); LYMPHOCYTES # (AUTO) 2.5 (1.0-3.2); LYMPHOCYTES % 37.4 % (18.0-39.1); MEAN CORPUSCULAR HEMOGLOBIN 28.6 pg (28-32); MEAN CORPUSCULAR HGB CONC 33.7 g/dL (31-35); MEAN CORPUSCULAR VOLUME 84.8 fL (81-99); MONOCYTES # (AUTO) 0.7 (0.2-0.8); MONOCYTES % 9.8 % (4.4-11.3); NEUTROPHILS # (AUTO) 3.1 (2.1-6.9); NEUTROPHILS % 46.8 % (38.7-80.0); PLATELET COUNT 188 x10e3/uL (140-360); RED BLOOD COUNT 2.97 x10e6/uL (3.6-5.1); RED CELL DISTRIBUTION WIDTH 13.4 % (11.7-14.4)
[2018-10-26 05:42] LABS: ALBUMIN 2.8 g/dL (3.5-5.0); ALBUMIN/GLOBULIN RATIO 1.1 (0.8-2.0); ANION GAP 10.5 mmol/L (8-16); CALCIUM 9.4 mg/dL (8.4-10.2); CHOL/HDL RATIO 4.9 (3.0-3.6); CREATININE, SERUM 1.68 mg/dL (0.57-1.11); POTASSIUM 4.5 mmol/L (3.5-5.1)
[2018-10-26] MEDS: SODIUM CHLORIDE 0.9% 1000ML 1,000 ML IV SCH ×2 (07:00→16:57)
[2018-10-26 07:37] LABS: CREATINE KINASE MB 2.8 ng/mL (0-5.0)
[2018-10-26] MEDS: OLMESARTAN 20 MG TAB PO SCH (08:47)
[2018-10-26] MEDS: LEVOTHYROXINE SODIUM 125 MCG TAB PO SCH (08:47)
[2018-10-26] MEDS: ASPIRIN 81 MG ENTERIC COATED PO SCH (08:47)
[2018-10-26] MEDS: AMLODIPINE BESYLATE 5 MG TAB PO SCH (08:47)
[2018-10-26] MEDS: FAMOTIDINE 20 MG/2 ML VIAL IV SCH (08:47)
--- NOTE | 2018-10-26 14:00 | NUR ---
CASE MANAGEMENT ASSESSMENT Production Engineer Track to bedside to discuss plan of care with patient/family. CM/SW role and care transitions discussed. Anticipated discharge plan discussed along with duration of care. CM/SW discussed patients right to make decisions in care. CM/SW work hours given. Patient lives: with her Kris Admit/Transfer: thru ED Hospital/ER visits since last admit: December 2017 for UTI; 1 ED visit at [facility] for laceration on knee POA/Emergency contact: Kris Alysha [phone] Current/Previous Home Health: none PCP/Follow-up Care: Dr. Kaba - pt states she will follow up with him after discharge. CM advised her to follow up within 7 days of discharge Current/Previous DME: walker Medications (referring to index hospitalization or the first time you were in the hospital) a. Were changes made in your medications when you were in the hospital on [date of index hospitalization]? n/a b. Did you understand the changes? n/a c. Were you able to obtain your new medications right away? n/a d. Were you able to take your medications like the doctor wanted you to? n/a e. Did the hospital give you an accurate, easy to understand list of medications when you left? n/a Scale of 1-10 how comfortable does patient feel with disease management in outpatient settin Other Services: none Employment Status: retired Areas of Concerns: anemia, near syncope Referral Needs: none Education Needs: medical management IMM/GARBER given and signed (if applicable): not at this time Goal for discharge: home CM/SW left business card at the bedside with contact information. Name and number was also written on the patients whiteboard. Patient verbalized understanding of discussion. CM will follow-up with ongoing discharge and transition of care needs.
--- NOTE | 2018-10-26 15:10 | NUR ---
Visit made by the Spiritual Care Department Pastoral Visitor, Janice Rosales. Pt sleeping soundly and no family present. Pastoral Visitor left a card describing availability of user experience lead and instructions on how to contact a user experience lead. KARISSA RODAS [employer] Spiritual Care Department O: [phone] Pager: [phone] ([phone] number calling from)
[2018-10-27] MEDS: SODIUM CHLORIDE 0.9% 1000ML 1,000 ML IV SCH (03:00)
[2018-10-27 04:00] VITALS: BP 170/74
--- NOTE | 2018-10-27 04:59 | NUR ---
Patient's IV infiltrated. IV fluids disconnected. Old IV removed from right hand with tip intact. Patient refused new IV insertion stating "I will be going home today". Nurse offered some one else to insert new IV. Patient adamantly refused.
[2018-10-27 07:30] VITALS: BP 172/74
[2018-10-27 08:00] VITALS: BP 172/74
--- NOTE | 2018-10-27 08:43 | NUR ---
IMM letter delivered and explained to pt. She verbalized understanding and stated that she is ready to go home. Signed copy placed in chart. Copy to pt.
[2018-10-27] MEDS ORDERED: CITALOPRAM HYDROBROMIDE 20 MG TAB PO SCH (09:00)
[2018-10-27] MEDS ORDERED: NAMENDA PO SCH (09:00)
[2018-10-27] MEDS ORDERED: ADDERALL 30MG PO SCH (09:00)
[2018-10-27] MEDS: ASPIRIN 81 MG ENTERIC COATED PO SCH (09:32)
[2018-10-27] MEDS: LEVOTHYROXINE SODIUM 125 MCG TAB PO SCH (09:33)
[2018-10-27] MEDS: OLMESARTAN 20 MG TAB PO SCH (09:33)
[2018-10-27] MEDS: AMLODIPINE BESYLATE 5 MG TAB PO SCH (09:33)
--- NOTE | 2018-10-27 10:45 | NUR ---
No PIV noted, per patient has not had an IV since last night. technician helper instrument removed. Pt d/c'd via private auto, all personal belongings, and d/c instructions in hand at time of d/c.
--- NOTE | 2018-10-28 04:46 | Discharge Summary ---
DISCHARGE DIAGNOSES: 1. Chronic anemia. 2. Hyperkalemia. 3. CKD 3 4. Near syncope. 5. Dehydration. 6. Hypertension. 7. Anxiety. 8. Cognitive deficiency. DISCHARGE MEDICATIONS: See discharge OCT. FOLLOWUP: Her regular scheduled appointment with me where I see her once a month. HISTORY OF PRESENT ILLNESS AND HOSPITAL COURSE: The patient is a 72-year-old lady, well-known to me with a history of dehydration and was placed on IV fluids as well as hyperkalemia which both resolved with iv fluids. Her blood pressure initially was elevated but She and her both stated her blood pressure is normal at home and did improve when placed back on her bp medications. So at the time of discharge, the patient was adamant on being discharged and she was calm, was ambulating. She was eating well. she was instructed to Continue with her home medication and follow up with PCP at her regular scheduled appointment. Please see hospital chart for full details. MD ELOINA Thomas/BRYAN /[id number]
== END 2018-10-27 10:45 | disposition home or self-care (01) | DRG 312 ==
LOC: ER 22:07 → ERHOLD 10-25 01:12 → MED/SURG 10-25 01:53 → MED/SURG2 10-25 11:11
PROVIDERS: ADMIT Internal Medicine; ATTEND Internal Medicine
DX: R55 Syncope and collapse (principal); E87.1 Hypo-osmolality and hyponatremia; D64.9 Anemia, unspecified; E87.5 Hyperkalemia; E86.0 Dehydration; I12.9 Hypertensive chronic kidney disease with stage 1 through stage 4 chronic kidney disease, or unspecified chronic kidney disease; N18.3 Chronic kidney disease, stage 3 (moderate); F09 Unspecified mental disorder due to known physiological condition; E03.9 Hypothyroidism, unspecified; F98.8 Other specified behavioral and emotional disorders with onset usually occurring in childhood and adolescence
CPT/HCPCS: 36415; 51700; 71045; 80053; 80061; 81001; 82550; 82553; 83880; 83935; 84300; 84436; 84443; 84479; 84484; 85025; 85610; 85730; 86850; 86900; 93005; 97139; 99284; J7030